=== PATIENT | male | born 1975 | race Caucasian/White ===

== ENCOUNTER 2021-04-18 08:39 | Day surgery (SDC) | payer OTHER ==
[~2021-04-18] VITALS: Ht 177.8 cm; Wt 77.3 kg
[2021-04-18] MEDS ORDERED: CETI10TA76 PO (09:35)
[2021-04-18] MEDS ORDERED: ROSU10TA2 PO (09:35)
[2021-04-18 09:41] VITALS: BP 123/83
[2021-04-18 10:13] VITALS: BP 123/83
[2021-04-18 10:15] LABS: BASOPHILS % (AUTO) 1 % (0-1); EOSINOPHILS % (AUTO) 4 % (1-7); LYMPHOCYTES % (AUTO) 34 % (22-44); MEAN CORPUSCULAR HEMOGLOBIN 29.6 pg (27.5-34.5); MEAN CORPUSCULAR HGB CONC 34.4 g/dL (33.2-36.2); MEAN PLATELET VOLUME 7.8 fL (7.4-10.4); MONOCYTES % (AUTO) 7 % (2-9); NEUTROPHILS % (AUTO) 55 % (42-75); PLATELET COUNT 214 x10^3/uL (130-400); RED BLOOD COUNT 5.25 x10^6/uL (4.38-5.82); RED CELL DISTRIBUTION WIDTH 13.2 % (9.4-14.8)
[2021-04-18] MEDS ORDERED: MIDAZOLAM 1 MG/ML, 5ML ONE (10:20)
[2021-04-18] MEDS ORDERED: FENTANYL PF 100 MCG/2ML ONE (10:20)
[2021-04-18] MEDS ORDERED: NALOXONE 1 MG/ML, 2ML ONE (10:20)
[2021-04-18] MEDS ORDERED: FLUMAZENIL 0.1 MG/1 ML, 5ML ONE (10:20)
[2021-04-18] MEDS ORDERED: HEPARIN 1,000 UNITS/ML, 10ML ONE (10:20)
[2021-04-18] MEDS ORDERED: PROTAMINE SULFATE 10 MG/ML, 25ML ONE (10:20)
[2021-04-18] MEDS ORDERED: VISIPAQUE 270 MG/ML, 50ML BOTTLE ONE (10:30)
[2021-04-18 10:38] LABS: ANION GAP 3 mmol/L (5-15); CALCIUM 8.5 mg/dL (8.5-10.1); CHLORIDE 107 mmol/L (98-107); CREATININE 0.91 mg/dL (0.7-1.3)
[2021-04-18] MEDS ORDERED: LIDOCAINE 1%, 20ML ONE (10:43)
[2021-04-18] MEDS ORDERED: CLOPIDOGREL 300 MG TABLET PO ONE (13:01)
[2021-04-18] MEDS ORDERED: ASPIRIN 81 MG TABLET EC PO ONE (13:01)
== END 2021-04-18 14:50 | disposition home or self-care (01) ==
LOC: OUT 08:39
PROVIDERS: ATTEND Surgery
DX: I70.211 Atherosclerosis of native arteries of extremities with intermittent claudication, right leg (principal)
CPT/HCPCS: 36415; 37225; 75625; 75710; 76937; 80048; 85025; 99156; 99157; C1714; C1751; C1760; C1769; C1884; C1894; C2623; J1644; J2250; J2720; J3010; Q9966; 75630; J2310